=== PATIENT | female | born 1990 | race Caucasian/White ===

== ENCOUNTER 2017-12-19 10:19 | Emergency (ER) | payer OTHER ==
[2017-12-19 11:46] VITALS: BP 132/68; PULSE 72; RESP 18; TEMP 97.8
--- NOTE | 2017-12-19 12:09 | PD ---
HPI Chief Complaint: Related Problem Time Seen by Provider: 12:07 Travel History International Travel<30 days: No Contact w/Intl Traveler<30days: No Traveled to known affect area: No History of Present Illness HPI 27-year-old female presents to the emergency department with complaint of epigastric and lower abdominal pain and cramping, nausea, vomiting 3 days. She thinks her last menstrual period was October 21. Found out she was 4 weeks ago. This is her second . Her first ended in an elective . Says she is unable to keep anything down. Last vomited 15 minutes ago. Denies fevers. Denies vaginal bleeding, discharge, leakage. Reports feeling weak and lightheaded. Says she almost fainted on Tuesday while at work. Denies chest pain, shortness of breath. Denies dysuria, hematuria. Abdominal pain comes and goes. Reports pain 5/10. Describes it as a pressure and ache. Worse after eating. No known relieving factors. Has tried taking Tums. Business Trainer is Dr. Tellez and she has an appointment on . No primary care provider. Allergies to penicillin and Ativan. History of cholecystectomy. Denies significant past medical history. Has no other medical complaints. No other modifying factors or associated signs and symptoms. PFSH Past Medical History ?: Social History Tobacco Use: No Allergies-Medications (Allergen,Severity, Reaction): Coded Allergies: Penicillins (Verified Allergy, Unknown, 12/19/17) lorazepam (Verified Allergy, Unknown, 12/19/17) Reported Meds & Prescriptions Reported Meds & Active Scripts Active Zofran Odt (Ondansetron Odt) 4 Mg Tab 4 Mg SL Q8HR PRN Macrobid (Nitrofurantoin Monoh/Nitrofur Macro) 100 Mg Cap 100 Mg PO BID 5 Days Review of Systems Except as stated in HPI: all other systems reviewed are Neg Physical Exam Narrative GENERAL: Well-nourished, well-developed female patient, in no acute distress; afebrile SKIN: Warm and dry. HEAD: Atraumatic. Normocephalic. EYES: Pupils equal and round. No scleral icterus. No injection or drainage. ENT: Mucosa pink and moist. Airway patent. NECK: Trachea midline. CARDIOVASCULAR: Regular rate and rhythm. No murmur appreciated. RESPIRATORY: No accessory muscle use. Clear to auscultation. Breath sounds equal bilaterally. No retractions or tachypnea. GASTROINTESTINAL: Morbidly obese. Abdomen soft, tenderness on palpation to epigastric and lower abdominal, nondistended. Hepatic and splenic margins not palpable. Bowel sounds are active 4 quadrants. Nonrigid. No rebound tenderness. No guarding. BACK: No CVA tenderness. MUSCULOSKELETAL: No obvious deformities. No clubbing. No cyanosis. No edema. NEUROLOGICAL: Awake and alert. Oriented 3. No obvious cranial nerve deficits. Motor grossly within normal limits. Normal speech. PSYCHIATRIC: Appropriate mood and affect; insight and judgment normal. Data Data Last Documented VS Vital Signs Date Time Temp Pulse Resp B/P (MAP) Pulse Ox O2 Delivery O2 Flow Rate FiO2 12/19/17 18:58 75 19 120/80 (93) 100 12/19/17 11:46 97.8 Orders Orders Beta Hcg (Quant/Titer) (12/19/17 11:49) Complete Blood Count With Diff (12/19/17 11:49) Comprehensive Metabolic Panel (12/19/17 11:49) Lipase (12/19/17 11:49) Urinalysis - C+S If Indicated (12/19/17 11:49) Electrocardiogram (12/19/17 11:49) Ed Urine Pregnancytest Poc (12/19/17 11:49) Iv Access Insert/Monitor (12/19/17 12:20) Sodium Chloride 0.9% Flush (Ns Flush) (12/19/17 12:30) Ondansetron Inj (Zofran Inj) (12/19/17 12:30) Sodium Chlor 0.9% 1000 Ml Inj (Ns 1000 M (12/19/17 12:25) Vascular Poc Ultrasound (12/19/17 ) Vascular Access Team Consult/P PRN (12/19/17 13:39) Us Pelvis (Ques Pr/Ect)W Trans (12/19/17 ) Sodium Chlorid 0.9% 500 Ml Inj (Ns 500 M (12/19/17 16:30) Ed Discharge Order (12/19/17 18:40) Labs Laboratory Tests Test 12/19/17 12:55 12/19/17 17:36 White Blood Count 9.7 TH/MM3 Red Blood Count 4.31 MIL/MM3 Hemoglobin 13.4 GM/DL Hematocrit 39.8 % Mean Corpuscular Volume 92.2 FL Mean Corpuscular Hemoglobin 31.2 PG Mean Corpuscular Hemoglobin Concent 33.8 % Red Cell Distribution Width 14.3 % Platelet Count 301 TH/MM3 Mean Platelet Volume 9.8 FL Neutrophils (%) (Auto) 81.3 % Lymphocytes (%) (Auto) 12.2 % Monocytes (%) (Auto) 5.5 % Eosinophils (%) (Auto) 0.6 % Basophils (%) (Auto) 0.4 % Neutrophils # (Auto) 7.9 TH/MM3 Lymphocytes # (Auto) 1.2 TH/MM3 Monocytes # (Auto) 0.5 TH/MM3 Eosinophils # (Auto) 0.1 TH/MM3 Basophils # (Auto) 0.0 TH/MM3 CBC Comment DIFF FINAL Differential Comment Urine Color YELLOW Urine Turbidity CLEAR Urine pH 7.5 Urine Specific [place] 1.013 Urine Protein NEG mg/dL Urine Glucose (UA) NEG mg/dL Urine Ketones 40 mg/dL Urine Occult Blood NEG Urine Nitrite NEG Urine Bilirubin NEG Urine Urobilinogen LESS THAN 2.0 MG/DL Urine Leukocyte Esterase NEG Urine RBC LESS THAN 1 /hpf Urine WBC LESS THAN 1 /hpf Urine Squamous Epithelial Cells 1 /hpf Urine Bacteria RARE /hpf Microscopic Urinalysis Comment CULT NOT INDICATED Blood Urea Nitrogen 4 MG/DL Creatinine 0.63 MG/DL Random Glucose 62 MG/DL Total Protein 8.1 GM/DL Albumin 3.2 GM/DL Calcium Level 8.8 MG/DL Alkaline Phosphatase 101 U/L Aspartate Amino Transf (AST/SGOT) 94 U/L Alanine Aminotransferase (ALT/SGPT) 253 U/L Total Bilirubin 1.0 MG/DL Sodium Level 139 MEQ/L Potassium Level 3.6 MEQ/L Chloride Level 106 MEQ/L Carbon Dioxide Level 24.0 MEQ/L Anion Gap 9 MEQ/L Estimat Glomerular Filtration Rate 112 ML/MIN Lipase 117 U/L Human Chorionic Gonadotropin, Quant 14584 MIU/ML [facility] Medical Decision Making Medical Screen Exam Complete: Yes Emergency Medical Condition: Yes Medical Record Reviewed: Yes Differential Diagnosis Ectopic , near syncope, UTI, gastritis, nausea and vomiting during Narrative Course 27-year-old female that is with nausea, vomiting, epigastric and lower abdominal pain. Patient thinks that her last menstrual period was October 21. Patient had near syncopal episode on Tuesday while at work. Denies chest pain, shortness of breath. CBC, CMP, lipase, urinalysis, beta hCG, UPT, EKG ordered in triage. Pelvic ultrasound, IV, normal saline bolus, Zofran ordered. 1244: EKG was sinus rhythm with sinus arrhythmia; no ST elevation or depression ; reviewed by Dr. Townsend. 1358: CBC unremarkable. Beta HCG 62633. Urinalysis with rare, high bacteria. Macrobid will be prescribed for home. 1605: Pelvic ultrasound concludes: 7-8 week intrauterine gestation. 1837: AST 94. ALT is 253. Lipase 117. Patient has history of cholecystectomy. Discussed all findings with Dr. Townsend and he agrees with discharge and outpatient follow-up. Discussed radiology and all lab findings with the patient. Instructed patient to follow-up with PHOTONICS ENGINEERING TECHNOLOGIST. Zofran and Macrobid prescribed for home. Instructed patient to follow up with primary care provider. Patient verbalizes understanding and agreement with treatment plan. Patient is medically cleared and stable for discharge. Discussed reasons to return to the emergency department. Patient agrees with treatment plan. The patients vital signs are stable and the patient is stable for outpatient follow-up and treatment. Patient discharged home, stable and in no acute distress. Diagnosis Primary Impression: Intrauterine Additional Impression: UTI in Qualified Codes: O23.41 - Unspecified infection of urinary tract in , first trimester Referrals: Business Trainer Primary Care Physician Patient Instructions: First Trimester (ED), General Instructions Additional Instructions: Antibiotics as prescribed Zofran as directed and as needed for nausea/vomiting Tylenol as directed and as needed for pain Follow-up with brim pouncing machine operator at scheduled appointment Follow-up with primary care provider Return to the emergency department immediately with worsening of symptoms Med/Other Pt SpecificInfo: Prescription(s) given Scripts Ondansetron Odt (Zofran Odt) 4 Mg Tab 4 MG SL Q8HR Y for Nausea/Vomiting, #10 TAB 0 Refills Prov: Mel Manuel 12/19/17 Nitrofurantoin Monohydrate Macrocrystals (Macrobid) 100 Mg Cap 100 MG PO BID for Infection for 5 Days, #10 CAP 0 Refills Prov: Mel Manuel 12/19/17 Disposition: DISCHARGE HOME Condition: Stable Mel Manuel Dec 19, 2017 12:09
[2017-12-19] MEDS ORDERED: SODIUM CHLOR 0.9% 1000 ML INJ 1,000 ML IV SCH (12:25)
[2017-12-19] MEDS ORDERED: SODIUM CHLORIDE 0.9% FLUSH 10 ML FLUSH IVF PRN (12:30)
[2017-12-19] MEDS ORDERED: ONDANSETRON HCL 4 MG/2 ML VIAL IVP ONE (12:30)
[2017-12-19 13:15] LABS: AUTOMATED NEUTROPHIL # 7.9 TH/MM3 (1.8-7.7); BASOPHIL % 0.4 % (0.0-2.0); EOSINOPHIL # 0.1 TH/MM3 (0-0.4); EOSINOPHIL % 0.6 % (0.0-4.0); HEMATOCRIT 39.8 % (35.0-46.0); HEMOGLOBIN 13.4 GM/DL (11.6-15.3); LYMPH % 12.2 % (9.0-44.0); LYMPHOCYTE # 1.2 TH/MM3 (1.0-4.8); MEAN CELL VOLUME 92.2 FL (80.0-100.0); MEAN CORPUSCULAR HEMOGLOBIN 31.2 PG (27.0-34.0); MEAN CORPUSCULAR HGB CONC 33.8 % (32.0-36.0); MEAN PLATELET VOLUME 9.8 FL (7.0-11.0); MONO % 5.5 % (0.0-8.0); MONOCYTE # 0.5 TH/MM3 (0-0.9); NEUT % 81.3 % (16.0-70.0); PLATELET COUNT 301 TH/MM3 (150-450); RED BLOOD COUNT 4.31 MIL/MM3 (4.00-5.30); RED CELL DISTRIBUTION WIDTH 14.3 % (11.6-17.2); WHITE BLOOD COUNT 9.7 TH/MM3 (4.0-11.0)
[2017-12-19 13:21] LABS: BACTERIA, URINE RARE /hpf; BILIRUBIN, URINE NEG (NEG); BLOOD, URINE NEG (NEG); GLUCOSE,URINE NEG (NEG); KETONE, URINE 40 mg/dL (NEG); NITRITE,URINE NEG (NEG); PH, URINE 7.5 (5.0-8.5); SQUAMOUS EPITHELIAL CELL URINE 1 /hpf (0-5); URINE COLOR YELLOW (YELLW/STRAW); URINE LEUKOCYTE ESTERASE NEG (NEG)
[2017-12-19 14:02] LABS: ALKALINE PHOSPHATASE 101 U/L (45-117); TOTAL PROTEIN 8.1 GM/DL (6.4-8.2)
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
[2017-12-19] MEDS ORDERED: MACR100C2 PO (16:07)
[2017-12-19] MEDS ORDERED: ZOFR4TAB3 SL (16:07)
[2017-12-19] MEDS ORDERED: SODIUM CHLORID 0.9% 500 ML INJ 500 ML IV ONE (16:30)
[2017-12-19 18:33] LABS: ALBUMIN 3.2 GM/DL (3.4-5.0); ALT (GPT) 253 U/L (10-53); AST (GOT) 94 U/L (15-37); BLOOD UREA NITROGEN 4 MG/DL (7-18); CALCIUM 8.8 MG/DL (8.5-10.1); CHLORIDE 106 MEQ/L (98-107); CREATININE 0.63 MG/DL (0.50-1.00); GLOMERULAR FILTRATION RATE 112 ML/MIN (>89); GLUCOSE,RANDOM 62 MG/DL (74-106); SODIUM (NA) 139 MEQ/L (136-145)
[2017-12-19 18:58] VITALS: BP 120/80
--- NOTE | 2017-12-20 14:27 | EKG ---
Date Performed: 12/19/2017 Time Performed: 12:38:46 PTAGE: 27 years EKG: Sinus rhythm WITH SINUS ARRHYTHMIA NONSPECIFIC T-WAVE ABNORMALITY BORDERLINE ECG NO PREVIOUS TRACING DOCTOR: Melchor Zuñiga Interpretating Date/Time 12/20/2017 14:26:10
== END 2017-12-19 19:05 | disposition home or self-care (01) ==
LOC: NED 10:19 → NEPD 19:05
DX: O23.41 Unspecified infection of urinary tract in pregnancy, first trimester (principal); O21.9 Vomiting of pregnancy, unspecified; R94.31 Abnormal electrocardiogram [ECG] [EKG]; Z3A.01 Less than 8 weeks gestation of pregnancy
CPT/HCPCS: 76700; 76817; 80053; 81001; 83690; 84702; 84703; 85025; 93005; 96361; 96374; 99285; J2405; J7030; J7040

== ENCOUNTER 2018-01-27 11:36 | Emergency (ER) | payer OTHER ==
[~2018-01-27] VITALS: Ht 170.2 cm; Wt 165.9 kg
[~2018-01-27 11:36] MED LIST: MACR100C2 PO; ZOFR4TAB3 SL
[2018-01-27 11:43] VITALS: BP 125/63; PULSE 72; RESP 18; TEMP 98.2; O2SAT 97
[2018-01-27] MEDS ORDERED: SODIUM CHLOR 0.9% 1000 ML INJ 1,000 ML IV ONE ×2 (11:46→13:15)
[2018-01-27 11:49] VITALS: PULSE 82; RESP 18; O2SAT 98
[2018-01-27 11:50] VITALS: BP_SYST 113; BP_SYST 114; BP_SYST 129; BP_DIAS 55; BP_DIAS 60; BP_DIAS 76; RESP 18; RESP 20; RESP 24
--- NOTE | 2018-01-27 11:51 | PD ---
HPI Chief Complaint: Related Problem Time Seen by Provider: 11:46 Travel History International Travel<30 days: No Contact w/Intl Traveler<30days: No Traveled to known affect area: No History of Present Illness HPI Patient was emergency department complaining of hyperemesis 1 week. Patient states that she has been having nonbloody nonbilious vomiting approximately 10 times a day for the past week. 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 Patient states when she got to work today she parked her car and reportedly passed out briefly. Patient denies any chest pain, fevers, abdominal pain, vaginal discharge, headaches, or other problems with her . Patient's OB is Dr. Thorne. Patient reports that she was taking Zofran last dose yesterday for this with little to no improvement of her symptoms. Patient reports that after vomiting she feels some shortness of breath. Patient reports she has been having difficulty urinating as she has not been able to keep fluids down. Eating or drinking makes her symptoms worse. Denies any pain radiation of pain. PFSH Past Medical History Diminished Hearing: No Immunizations Current: Yes ?: : 1 Para: 0 Past Surgical History Cholecystectomy: Yes Social History Alcohol Use: No Tobacco Use: No Substance Use: No Allergies-Medications (Allergen,Severity, Reaction): Coded Allergies: Penicillins (Verified Allergy, Unknown, 12/19/17) lorazepam (Verified Allergy, Unknown, 12/19/17) Reported Meds & Prescriptions Reported Meds & Active Scripts Active Phenergan Supp (Promethazine HCl) 12.5 Mg Supp 12.5 Mg RECTAL Q6H PRN Zofran Odt (Ondansetron Odt) 4 Mg Tab 4 Mg SL Q6HR PRN Macrobid (Nitrofurantoin Monoh/Nitrofur Macro) 100 Mg Cap 100 Mg PO BID 7 Days Zofran Odt (Ondansetron Odt) 4 Mg Tab 4 Mg SL Q8HR PRN Macrobid (Nitrofurantoin Monoh/Nitrofur Macro) 100 Mg Cap 100 Mg PO BID 5 Days Review of Systems Except as stated in HPI: all other systems reviewed are Neg Physical Exam Narrative GENERAL: Well-developed, overly nourished, in no acute distress, and non-ill appearing. SKIN: Focused skin assessment warm and dry. HEAD: Atraumatic. Normocephalic. EYES: Pupils equal and round. EOMI. No scleral icterus. No injection or drainage. ENT: No nasal bleeding or discharge. Mucous membranes pink and moist. NECK: Trachea midline. Supple. No nuclear rigidity. CARDIOVASCULAR: Regular rate and rhythm. No murmur appreciated. RESPIRATORY: No accessory muscle use. No respiratory distress. Clear to auscultation. Breath sounds equal bilaterally. GASTROINTESTINAL: Abdomen soft, non-tender, nondistended, and no guarding. Hepatic and splenic margins not palpable. Normal bowel sounds x4. No pulsatile mass. MUSCULOSKELETAL: No obvious deformities. No clubbing. No cyanosis. No edema. Full range of motion. NEUROLOGICAL: Awake and alert. No obvious cranial nerve deficits. Motor grossly within normal limits. Normal speech. PSYCHIATRIC: Appropriate mood and affect; insight and judgment normal. Data Data Last Documented VS Vital Signs Date Time Temp Pulse Resp B/P (MAP) Pulse Ox O2 Delivery O2 Flow Rate FiO2 01/27/18 15:08 01/27/18 11:50 77 18 83 20 90 24 01/27/18 11:49 98 Room Air 01/27/18 11:43 98.2 Orders Orders Electrocardiogram (01/27/18 11:46) Basic Metabolic Panel (Bmp) (01/27/18 11:46) Complete Blood Count With Diff (01/27/18 11:46) Magnesium (Mg) (01/27/18 11:46) Urinalysis - C+S If Indicated (01/27/18 11:46) Ecg Monitoring (01/27/18 11:46) Iv Access Insert/Monitor (01/27/18 11:46) Oximetry (01/27/18 11:46) Ondansetron Inj (Zofran Inj) (01/27/18 12:00) Sodium Chloride 0.9% Flush (Ns Flush) (01/27/18 12:00) Sodium Chlor 0.9% 1000 Ml Inj (Ns 1000 M (01/27/18 11:46) Orthostatic Vital Signs (01/27/18 11:46) Heart Tones (01/27/18 11:51) Sodium Chlor 0.9% 1000 Ml Inj (Ns 1000 M (01/27/18 13:15) Urine Culture (01/27/18 13:22) Ed Discharge Order (01/27/18 14:12) Labs Laboratory Tests Test 01/27/18 11:57 01/27/18 13:22 White Blood Count 9.3 TH/MM3 Red Blood Count 4.46 MIL/MM3 Hemoglobin 13.9 GM/DL Hematocrit 41.5 % Mean Corpuscular Volume 93.2 FL Mean Corpuscular Hemoglobin 31.1 PG Mean Corpuscular Hemoglobin Concent 33.4 % Red Cell Distribution Width 14.2 % Platelet Count 159 TH/MM3 Mean Platelet Volume 8.9 FL Neutrophils (%) (Auto) 84.7 % Lymphocytes (%) (Auto) 8.4 % Monocytes (%) (Auto) 5.0 % Eosinophils (%) (Auto) 1.6 % Basophils (%) (Auto) 0.3 % Neutrophils # (Auto) 7.9 TH/MM3 Lymphocytes # (Auto) 0.8 TH/MM3 Monocytes # (Auto) 0.5 TH/MM3 Eosinophils # (Auto) 0.1 TH/MM3 Basophils # (Auto) 0.0 TH/MM3 CBC Comment DIFF FINAL Differential Comment Blood Urea Nitrogen 5 MG/DL Creatinine 0.60 MG/DL Random Glucose 79 MG/DL Calcium Level 8.9 MG/DL Magnesium Level 1.8 MG/DL Sodium Level 135 MEQ/L Potassium Level 4.5 MEQ/L Chloride Level 106 MEQ/L Carbon Dioxide Level 18.4 MEQ/L Anion Gap 11 MEQ/L Estimat Glomerular Filtration Rate 118 ML/MIN Urine Color Dark Urine Turbidity CLEAR Urine pH 7.0 Urine Specific [place] 1.028 Urine Protein 100 mg/dL Urine Glucose (UA) NEG mg/dL Urine Ketones 80 mg/dL Urine Occult Blood TRACE Urine Nitrite NEG Urine Bilirubin SMALL Urine Urobilinogen 1.0 MG/DL Urine Leukocyte Esterase NEG Urine RBC 2 /hpf Urine WBC 1 /hpf Urine Squamous Epithelial Cells 5 /hpf Urine Bacteria MOD /hpf Urine Mucus MANY /lpf Microscopic Urinalysis Comment CULTURE INDICATED MDM Medical Decision Making Medical Screen Exam Complete: Yes Emergency Medical Condition: Yes Interpretation(s) EKG reviewed by Dr. Etienne shows sinus rhythm ventricular rate of 66. No STEMI. Differential Diagnosis Hyperemesis gravidarum, UTI, dehydration, metabolic disturbance Narrative Course The abdominal exam is unremarkable without defined focal tenderness. There are normal active bowel sounds without any masses, distension, or significant tenderness. There was no evidence of an acute, surgical abdomen at this time. There was no clinical evidence to support cholecystitis/cholelithiasis, pancreatitis, perforation of gastric ulcer, colitis, diverticulitis, peritonitis , obstruction, volvulus, early appendicitis, or hernial incarceration or strangulation at this time. There was no evidence to support vascular pathology such as AAA, mesenteric ischemia. There was also no clinical evidence by history , exam or risk factors to suggest atypical presentation of cardiac disease such as ACS, AMI or atypical angina. Patient was found to have a UTI and started on Macrobid. During the course of the ED visit, the patient noted improvement. Clinical picture was discussed with the patient, as well as plan of care. The patient was instructed to follow up with their physician. Abdominal pain warnings were discussed with the patient. The patient is to return if worsens, pain worsens or changes, develop fever, inability to tolerate fluids with or without vomiting, increased vomiting, blood in vomit, unable to establish follow up or as needed. The patient agrees with plan. The patient was tolerating fluids at time of discharge. Patient in no obvious distress upon re-evaluation. All pertinent laboratory/ Radiology result(s) discussed with patient. Discussed patient with Dr. Etienne, who saw and evaluated the patient and is in agreement with plan of care and disposition. Any questions/concerns in reference to patient diagnosis/ condition discussed and clarified prior to patient's discharge. Reinforced sheer importance of close follow up with patient's OB. Instructed patient to return to ED immediately, if symptoms return/worsen. Patient showed understanding of above instructions. Further instructions and recommendations were detailed in discharge paperwork. Patient ambulated without difficulty out of ED at discharge. Diagnosis Primary Impression: Hyperemesis gravidarum Additional Impression: UTI (urinary tract infection) during Qualified Codes: O23.40 - Unspecified infection of urinary tract in , unspecified trimester Patient Instructions: General Instructions, Hyperemesis Gravidarum (DC), Urinary Tract Infection in (ED) Additional Instructions: Follow-up with your OB next week for reevaluation. Take all medication as prescribed. Return to the emergency department if symptoms get worse. Med/Other Pt SpecificInfo: Prescription(s) given Scripts Promethazine Supp (Phenergan Supp) 12.5 Mg Supp 12.5 MG RECTAL Q6H Y for NAUSEA OR VOMITING, #9 SUPP 0 Refills Prov: Gretta Etienne DO 01/27/18 Ondansetron Odt (Zofran Odt) 4 Mg Tab 4 MG SL Q6HR Y for Nausea/Vomiting, #12 TAB 0 Refills Prov: Gretta Etienne DO 01/27/18 Nitrofurantoin Monohydrate Macrocrystals (Macrobid) 100 Mg Cap 100 MG PO BID for Infection for 7 Days, #14 CAP 0 Refills Prov: Gretta Etienne DO 01/27/18 Disposition: 01 DISCHARGE HOME Condition: Stable John Reyes January 27, 2018 11:51
[2018-01-27] MEDS ORDERED: ONDANSETRON HCL 4 MG/2 ML VIAL IVP ONE (12:00)
[2018-01-27] MEDS ORDERED: SODIUM CHLORIDE 0.9% FLUSH 10 ML FLUSH IVF PRN (12:00)
[2018-01-27 12:20] LABS: AUTOMATED NEUTROPHIL # 7.9 TH/MM3 (1.8-7.7); BASOPHIL % 0.3 % (0.0-2.0); EOSINOPHIL # 0.1 TH/MM3 (0-0.4); EOSINOPHIL % 1.6 % (0.0-4.0); HEMATOCRIT 41.5 % (35.0-46.0); HEMOGLOBIN 13.9 GM/DL (11.6-15.3); LYMPH % 8.4 % (9.0-44.0); LYMPHOCYTE # 0.8 TH/MM3 (1.0-4.8); MEAN CELL VOLUME 93.2 FL (80.0-100.0); MEAN CORPUSCULAR HEMOGLOBIN 31.1 PG (27.0-34.0); MEAN CORPUSCULAR HGB CONC 33.4 % (32.0-36.0); MEAN PLATELET VOLUME 8.9 FL (7.0-11.0); MONOCYTE # 0.5 TH/MM3 (0-0.9); NEUT % 84.7 % (16.0-70.0); PLATELET COUNT 159 TH/MM3 (150-450); RED BLOOD COUNT 4.46 MIL/MM3 (4.00-5.30); RED CELL DISTRIBUTION WIDTH 14.2 % (11.6-17.2); WHITE BLOOD COUNT 9.3 TH/MM3 (4.0-11.0)
[2018-01-27 12:34] LABS: BICARBONATE 18.4 MEQ/L (21.0-32.0); CALCIUM 8.9 MG/DL (8.5-10.1); CREATININE 0.6 MG/DL (0.50-1.00); MAGNESIUM 1.8 MG/DL (1.5-2.5)
--- NOTE | 2018-01-27 13:16 | PD ---
Physical Exam Date Seen by Provider: January 27, 2018 Data Data Last Documented VS Vital Signs Date Time Temp Pulse Resp B/P (MAP) Pulse Ox O2 Delivery O2 Flow Rate FiO2 01/27/18 11:50 77 18 113/55 (74) 83 20 114/60 (78) 90 24 129/76 (93) 01/27/18 11:49 98 Room Air 01/27/18 11:43 98.2 Orders Orders Electrocardiogram (01/27/18 11:46) Basic Metabolic Panel (Bmp) (01/27/18 11:46) Complete Blood Count With Diff (01/27/18 11:46) Magnesium (Mg) (01/27/18 11:46) Urinalysis - C+S If Indicated (01/27/18 11:46) Ecg Monitoring (01/27/18 11:46) Iv Access Insert/Monitor (01/27/18 11:46) Oximetry (01/27/18 11:46) Ondansetron Inj (Zofran Inj) (01/27/18 12:00) Sodium Chloride 0.9% Flush (Ns Flush) (01/27/18 12:00) Sodium Chlor 0.9% 1000 Ml Inj (Ns 1000 M (01/27/18 11:46) Orthostatic Vital Signs (01/27/18 11:46) Heart Tones (01/27/18 11:51) Sodium Chlor 0.9% 1000 Ml Inj (Ns 1000 M (01/27/18 13:15) Urine Culture (01/27/18 13:22) Ed Discharge Order (01/27/18 14:12) Labs Laboratory Tests Test 01/27/18 11:57 01/27/18 13:22 White Blood Count 9.3 TH/MM3 Red Blood Count 4.46 MIL/MM3 Hemoglobin 13.9 GM/DL Hematocrit 41.5 % Mean Corpuscular Volume 93.2 FL Mean Corpuscular Hemoglobin 31.1 PG Mean Corpuscular Hemoglobin Concent 33.4 % Red Cell Distribution Width 14.2 % Platelet Count 159 TH/MM3 Mean Platelet Volume 8.9 FL Neutrophils (%) (Auto) 84.7 % Lymphocytes (%) (Auto) 8.4 % Monocytes (%) (Auto) 5.0 % Eosinophils (%) (Auto) 1.6 % Basophils (%) (Auto) 0.3 % Neutrophils # (Auto) 7.9 TH/MM3 Lymphocytes # (Auto) 0.8 TH/MM3 Monocytes # (Auto) 0.5 TH/MM3 Eosinophils # (Auto) 0.1 TH/MM3 Basophils # (Auto) 0.0 TH/MM3 CBC Comment DIFF FINAL Differential Comment Blood Urea Nitrogen 5 MG/DL Creatinine 0.60 MG/DL Random Glucose 79 MG/DL Calcium Level 8.9 MG/DL Magnesium Level 1.8 MG/DL Sodium Level 135 MEQ/L Potassium Level 4.5 MEQ/L Chloride Level 106 MEQ/L Carbon Dioxide Level 18.4 MEQ/L Anion Gap 11 MEQ/L Estimat Glomerular Filtration Rate 118 ML/MIN Urine Color Dark Urine Turbidity CLEAR Urine pH 7.0 Urine Specific [place] 1.028 Urine Protein 100 mg/dL Urine Glucose (UA) NEG mg/dL Urine Ketones 80 mg/dL Urine Occult Blood TRACE Urine Nitrite NEG Urine Bilirubin SMALL Urine Urobilinogen 1.0 MG/DL Urine Leukocyte Esterase NEG Urine RBC 2 /hpf Urine WBC 1 /hpf Urine Squamous Epithelial Cells 5 /hpf Urine Bacteria MOD /hpf Urine Mucus MANY /lpf Microscopic Urinalysis Comment CULTURE INDICATED MDM Medical Record Reviewed: Yes Supervised Visit with ANN: Yes Narrative Course I, Dr. Etienne, have reviewed the advance practice practitioner's documentation and am in agreement, met with the patient face to face, made the diagnosis, and the medical decision making was done by me. *My assessment and Findings: Hyperemesis gravidum. 27 year old female who is 14 weeks presents the emergency room with complaints of nausea and vomiting for the past few weeks. She is being followed by Dr. Lobato and is currently taking zofran as an antiemetic at home. Reports that the zofran is not working and she is still nauseous and can't keep anything down. Patient reports that she feels extremely dehydrated and is not unable to keep down fluids due to her n/v. Denies abdominal pain. Denies vaginal discharge or bleeding. She did have a normal ultrasound at 8 weeks at her ob's office. Patient has received 1 liter of IVF in the ER, patient is feeling much better. Plan to hydrate and discharge home with follow up with PCP and senior staff psychologist CBC & BMP Diagram 01/27/18 11:57 Calcium Level 8.9, Magnesium Level 1.8 Patient feeling much better, she will follow up with her senior staff psychologist and will return to ER as needed. Scripts Promethazine Supp (Phenergan Supp) 12.5 Mg Supp 12.5 MG RECTAL Q6H Y for NAUSEA OR VOMITING, #9 SUPP 0 Refills Prov: Gretta Etienne DO 01/27/18 Ondansetron Odt (Zofran Odt) 4 Mg Tab 4 MG SL Q6HR Y for Nausea/Vomiting, #12 TAB 0 Refills Prov: Gretta Etienne DO 01/27/18 Nitrofurantoin Monohydrate Macrocrystals (Macrobid) 100 Mg Cap 100 MG PO BID for Infection for 7 Days, #14 CAP 0 Refills Prov: Gretta Etienne DO 01/27/18 Gretta Etienne DO January 27, 2018 13:16
[2018-01-27 13:40] LABS: BILIRUBIN, URINE SMALL (NEG); GLUCOSE,URINE NEG (NEG); KETONE, URINE 80 mg/dL (NEG); NITRITE,URINE NEG (NEG); URINE COLOR Dark (YELLW/STRAW); URINE LEUKOCYTE ESTERASE NEG (NEG)
[2018-01-27 13:44] LABS: BLOOD, URINE TRACE (NEG)
[2018-01-27 13:52] LABS: BACTERIA, URINE MOD /hpf; MUCUS URINE MANY /lpf (OCC); SQUAMOUS EPITHELIAL CELL URINE 5 /hpf (0-5)
[2018-01-27] MEDS ORDERED: ZOFR4TAB3 SL (14:16)
[2018-01-27] MEDS ORDERED: PROM2SUP RECTAL (14:16)
[2018-01-27] MEDS ORDERED: MACR100C2 PO (14:16)
--- NOTE | 2018-01-27 22:21 | EKG ---
Date Performed: 01/27/2018 Time Performed: 12:06:51 PTAGE: 27 years EKG: Sinus rhythm WITH SINUS ARRHYTHMIA Since previous tracing, no significant change noted NORMAL ECG PREVIOUS TRACING : 12/19/2017 12.38 DOCTOR: Nikolai Paulino Interpretating Date/Time 01/27/2018 17:22:52
== END 2018-01-27 15:16 | disposition home or self-care (01) ==
LOC: NEPE 11:36
DX: O21.0 Mild hyperemesis gravidarum (principal); O23.42 Unspecified infection of urinary tract in pregnancy, second trimester; Z88.0 Allergy status to penicillin; Z88.8 Allergy status to other drugs, medicaments and biological substances; Z3A.14 14 weeks gestation of pregnancy; Z79.899 Other long term (current) drug therapy
CPT/HCPCS: 80048; 81001; 83735; 85025; 87086; 93005; 96361; 96374; 99284; J2405; J7030

== ENCOUNTER 2018-02-09 21:25 | Emergency (ER) | payer OTHER ==
[~2018-02-09] VITALS: Ht 170.2 cm; Wt 165.9 kg
[~2018-02-09 21:25] MED LIST changes: +PROM2SUP RECTAL
[2018-02-09 21:33] VITALS: BP 111/67; PULSE 81; RESP 20; TEMP 98.1; O2SAT 97
[2018-02-09] MEDS ORDERED: ZOFR4TAB3 SL (21:33)
[2018-02-09] MEDS ORDERED: COLA100C5 PO (21:33)
[2018-02-09 21:41] VITALS: BP 112/68; PULSE 78; RESP 20; O2SAT 98
[2018-02-09 21:44] VITALS: RESP 20
[2018-02-09] MEDS ORDERED: ONDANSETRON HCL 4 MG/2 ML VIAL IV PUSH ONE (21:45)
[2018-02-09] MEDS ORDERED: SODIUM CHLOR 0.9% 1000 ML INJ 1,000 ML IV ONE (21:45)
--- NOTE | 2018-02-09 21:50 | PD ---
HPI Chief Complaint: Syncope/Near-Syncope Time Seen by Provider: 21:33 Travel History International Travel<30 days: No Contact w/Intl Traveler<30days: No Traveled to known affect area: No History of Present Illness HPI 27-year-old female complains of dizziness, shortness of breath, nausea vomiting. Patient is about 16 week . Patient has history of hyperemesis gravidarum. Patient has saline lock and gives herself IV fluid for persistent nausea vomiting. Patient also was given Zofran ODT for nausea vomiting. Patient also was given heparin saline lock flush. Patient states that she started having shortness of breath, nausea vomiting dizziness this evening. Patient states her blood pressure was dropping too low point. Patient denies any loss of consciousness. EMS was called. Blood pressure was found to be in the 80s over 60s. Patient was transported to ED for evaluation. Patient is feeling better now. Patient denies any headache. Patient denies any chest pain or shortness of breath now. Patient denies abdominal pain. Patient denies any vaginal discharge or bleeding. Patient states that she has dysuria today. Patient denies any fever chills. Patient denies any back pain. PFSH Past Medical History Diminished Hearing: No Immunizations Current: Yes Tetanus Vaccination: Unknown Influenza Vaccination: No ?: : 1 Para: 0 Miscarriage: 1 Past Surgical History Cholecystectomy: Yes Social History Alcohol Use: No Tobacco Use: No Substance Use: No Allergies-Medications (Allergen,Severity, Reaction): Coded Allergies: Penicillins (Verified Allergy, Unknown, 02/09/18) lorazepam (Verified Allergy, Unknown, 02/09/18) Reported Meds & Prescriptions Reported Meds & Active Scripts Active Reported Zofran Odt (Ondansetron Odt) 4 Mg Tab 4 Mg SL Q6HR PRN Colace (Docusate Sodium) 100 Mg Capsule 100 Mg PO BID Review of Systems General / Constitutional: No: Fever Eyes: No: Visual changes HENT: Positive: Lightheadedness, No: Headaches Cardiovascular: No: Chest Pain or Discomfort Respiratory: Positive: Shortness of Breath Gastrointestinal: No: Abdominal Pain Genitourinary: No: Dysuria Musculoskeletal: No: Pain Skin: No Rash Neurologic: No: Weakness Psychiatric: No: Depression Endocrine: No: Polydipsia Hematologic/Lymphatic: No: Easy Bruising Physical Exam Narrative GENERAL: Well-nourished, well-developed patient. SKIN: Focused skin assessment warm/dry. HEAD: Normocephalic. EYES: No scleral icterus. No injection or drainage. NECK: Supple, trachea midline. No JVD or lymphadenopathy. CARDIOVASCULAR: Regular rate and rhythm without murmurs, gallops, or rubs. RESPIRATORY: Breath sounds equal bilaterally. No accessory muscle use. GASTROINTESTINAL: Abdomen soft, non-tender, nondistended. MUSCULOSKELETAL: No cyanosis, or edema. BACK: Nontender without obvious deformity. No CVA tenderness. Neurologic exam normal. Data Data Last Documented VS Vital Signs Date Time Temp Pulse Resp B/P (MAP) Pulse Ox O2 Delivery O2 Flow Rate FiO2 02/09/18 21:44 20 02/09/18 21:41 78 98 Room Air 02/09/18 21:33 98.1 Orders Orders Complete Blood Count With Diff (02/09/18 21:40) Comprehensive Metabolic Panel (02/09/18 21:40) Prothrombin Time / Inr (Pt) (02/09/18 21:40) Act Partial Throm Time (Ptt) (02/09/18 21:40) Urinalysis - C+S If Indicated (02/09/18 21:40) Iv Access Insert/Monitor (02/09/18 21:40) Ecg Monitoring (02/09/18 21:40) Oximetry (02/09/18 21:40) Sodium Chlor 0.9% 1000 Ml Inj (Ns 1000 M (02/09/18 21:45) Ondansetron Inj (Zofran Inj) (02/09/18 21:45) Basic Metabolic Panel (Bmp) (02/09/18 23:29) Urine Culture (02/09/18 23:48) Labs Laboratory Tests Test 02/09/18 22:15 02/09/18 23:48 White Blood Count 10.4 TH/MM3 Red Blood Count 3.94 MIL/MM3 Hemoglobin 12.4 GM/DL Hematocrit 36.6 % Mean Corpuscular Volume 93.1 FL Mean Corpuscular Hemoglobin 31.6 PG Mean Corpuscular Hemoglobin Concent 33.9 % Red Cell Distribution Width 14.3 % Platelet Count 147 TH/MM3 Mean Platelet Volume 9.3 FL Neutrophils (%) (Auto) 81.1 % Lymphocytes (%) (Auto) 11.1 % Monocytes (%) (Auto) 5.6 % Eosinophils (%) (Auto) 1.8 % Basophils (%) (Auto) 0.4 % Neutrophils # (Auto) 8.4 TH/MM3 Lymphocytes # (Auto) 1.2 TH/MM3 Monocytes # (Auto) 0.6 TH/MM3 Eosinophils # (Auto) 0.2 TH/MM3 Basophils # (Auto) 0.0 TH/MM3 CBC Comment DIFF FINAL Differential Comment Blood Urea Nitrogen 3 MG/DL 4 MG/DL Creatinine 0.21 MG/DL 0.55 MG/DL Random Glucose 48 MG/DL 84 MG/DL Total Protein 3.6 GM/DL Albumin 1.4 GM/DL Calcium Level 5.0 MG/DL 8.7 MG/DL Alkaline Phosphatase 46 U/L Aspartate Amino Transf (AST/SGOT) 12 U/L Alanine Aminotransferase (ALT/SGPT) 21 U/L Total Bilirubin 0.2 MG/DL Sodium Level 148 MEQ/L 139 MEQ/L Potassium Level 2.1 MEQ/L 3.9 MEQ/L Chloride Level 123 MEQ/L 106 MEQ/L Carbon Dioxide Level 14.0 MEQ/L 23.8 MEQ/L Anion Gap 11 MEQ/L 9 MEQ/L Estimat Glomerular Filtration Rate 397 ML/MIN 131 ML/MIN Protein Corrected Calcium 6.5 MG/DL Urine Color LIGHT-YELLOW Urine Turbidity HAZY Urine pH 6.0 Urine Specific [place] 1.005 Urine Protein NEG mg/dL Urine Glucose (UA) NEG mg/dL Urine Ketones NEG mg/dL Urine Occult Blood NEG Urine Nitrite NEG Urine Bilirubin NEG Urine Urobilinogen LESS THAN 2.0 MG/DL Urine Leukocyte Esterase NEG Urine RBC 1 /hpf Urine WBC 4 /hpf Urine Squamous Epithelial Cells 5 /hpf Urine Transitional Epithelial Cells <1 /hpf Urine Bacteria MANY /hpf Microscopic Urinalysis Comment CULTURE INDICATED MDM Medical Decision Making Medical Screen Exam Complete: Yes Emergency Medical Condition: Yes Interpretation(s) 22:54 PM. CBC within normal limits. Platelet 147. 1:10 AM. CMP was recollected and within normal limits. UA shows bacteriuria. Differential Diagnosis Differential diagnosis including vasovagal reaction, electrolyte imbalance, dehydration. Narrative Course 27-year-old female with transient shortness of breath, nausea vomiting, hypotension. History of panic attack with hypotension in the past. Patient is 16 week with history of hyperemesis gravidarum. Patient is giving herself IV fluids at home with a saline lock in place. Normal saline solution 1 L IV bolus. Zofran 4 mg IV. Diagnosis Primary Impression: Vasovagal reaction Additional Impression: Bacteriuria Patient Instructions: General Instructions Additional Instructions: Continue IV fluids and Zofran at home as directed. Macrobid but this directed. Follow-up with personal physician. Return as needed. Med/Other Pt SpecificInfo: Prescription(s) given Scripts Nitrofurantoin Monohydrate Macrocrystals (Macrobid) 100 Mg Cap 100 MG PO BID for Infection, #14 CAP 0 Refills Prov: Josh Coker MD 02/10/18 Disposition: 01 DISCHARGE HOME Condition: Stable Josh Coker MD February 09, 2018 21:50
[2018-02-09 22:29] LABS: AUTOMATED NEUTROPHIL # 8.4 TH/MM3 (1.8-7.7); BASOPHIL % 0.4 % (0.0-2.0); EOSINOPHIL # 0.2 TH/MM3 (0-0.4); EOSINOPHIL % 1.8 % (0.0-4.0); HEMATOCRIT 36.6 % (35.0-46.0); HEMOGLOBIN 12.4 GM/DL (11.6-15.3); LYMPH % 11.1 % (9.0-44.0); LYMPHOCYTE # 1.2 TH/MM3 (1.0-4.8); MEAN CELL VOLUME 93.1 FL (80.0-100.0); MEAN CORPUSCULAR HEMOGLOBIN 31.6 PG (27.0-34.0); MEAN CORPUSCULAR HGB CONC 33.9 % (32.0-36.0); MEAN PLATELET VOLUME 9.3 FL (7.0-11.0); MONO % 5.6 % (0.0-8.0); MONOCYTE # 0.6 TH/MM3 (0-0.9); NEUT % 81.1 % (16.0-70.0); PLATELET COUNT 147 TH/MM3 (150-450); RED BLOOD COUNT 3.94 MIL/MM3 (4.00-5.30); RED CELL DISTRIBUTION WIDTH 14.3 % (11.6-17.2); WHITE BLOOD COUNT 10.4 TH/MM3 (4.0-11.0)
[2018-02-09 23:24] LABS: ALBUMIN 1.4 GM/DL (3.4-5.0); CREATININE 0.21 MG/DL (0.50-1.00); TOTAL BILIRUBIN ADULT 0.2 MG/DL (0.2-1.0); TOTAL PROTEIN 3.6 GM/DL (6.4-8.2)
[2018-02-09 23:28] LABS: CALCIUM-PROTEIN CORRECTED 6.5 MG/DL (8.5-10.1)
[2018-02-10 00:23] LABS: BACTERIA, URINE MANY /hpf; BILIRUBIN, URINE NEG (NEG); BLOOD, URINE NEG (NEG); GLUCOSE,URINE NEG (NEG); KETONE, URINE NEG (NEG); NITRITE,URINE NEG (NEG); SQUAMOUS EPITHELIAL CELL URINE 5 /hpf (0-5); TRANSITIONAL EPI CELLS, URINE <1 /hpf; URINE COLOR LIGHT-YELLOW (YELLW/STRAW); URINE LEUKOCYTE ESTERASE NEG (NEG)
[2018-02-10 00:30] LABS: BICARBONATE 23.8 MEQ/L (21.0-32.0); CALCIUM 8.7 MG/DL (8.5-10.1); CREATININE 0.55 MG/DL (0.50-1.00)
[2018-02-10] MEDS ORDERED: MACR100C2 PO (01:13)
== END 2018-02-10 01:47 | disposition home or self-care (01) ==
LOC: NEPC 21:25
DX: O26.892 Other specified pregnancy related conditions, second trimester (principal); R55 Syncope and collapse; I95.9 Hypotension, unspecified; R30.0 Dysuria; R82.71 Bacteriuria; O21.0 Mild hyperemesis gravidarum; Z3A.16 16 weeks gestation of pregnancy
CPT/HCPCS: 80053; 81001; 85025; 87086; 96360; 99284; J7030; 80048